=== PATIENT | female | born 1985 ===

== ENCOUNTER 2018-04-13 18:09 | Emergency (ER) | payer SELFPAY ==
[2018-04-13 18:16] VITALS: BP 126/80; PULSE 78; RESP 18; TEMP 99; O2SAT 99
--- NOTE | 2018-04-13 19:27 | ED PDOC ---
Lower Extremity Pain/Injury Time Seen by Provider: 04/13/18 18:16 Chief Complaint (Nursing): Lower Extremity Problem/Injury Chief Complaint (Provider): Lower extremity injury History Per: Patient History/Exam Limitations: no limitations Onset/Duration Of Symptoms: Other (3-4 weeks) Current Symptoms Are (Timing): Constant Additional Complaint(s): 32 year old female presented to ED with complaints of left foot pain. Patient reports that 1 year ago, she injured her left foot and never sought attention. For the past 3-4 weeks, pain has worsened and is greatest on the left heal. 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 Patient denies new trauma, numbness, tingling, and rash. PCP: none provided Past Medical History Reviewed: Historical Data, Nursing Documentation, Vital Signs Vital Signs: Last Vital Signs Temp 99.0 F 04/13/18 18:12 Pulse 78 04/13/18 18:12 Resp 18 04/13/18 18:12 BP 126/80 04/13/18 18:12 Pulse Ox 99 04/13/18 18:12 - Medical History PMH: No Chronic Diseases - Surgical History Surgical History: No Surg Hx - Family History Family History: States: Unknown Family Hx - Home Medications Home Medications: Ambulatory Orders Medication Instructions Recorded Meloxicam [Mobic] 7.5 mg PO DAILY PRN #14 tab 04/13/18 - Allergies Allergies/Adverse Reactions: Allergies Allergy/AdvReac Type Severity Reaction Status Date / Time No Known Allergies Allergy Verified 04/13/18 18:12 Review of Systems ROS Statement: Except As Marked, All Systems Reviewed And Found Negative Musculoskeletal: Positive for: Foot Pain (left foot) Skin: Negative for: Rash Neurological: Negative for: Numbness, Other (tingling, new trauma) Physical Exam - Reviewed Nursing Documentation Reviewed: Yes Vital Signs Reviewed: Yes - Physical Exam Appears: Positive for: Well, Non-toxic, No Acute Distress Head Exam: Positive for: ATRAUMATIC, NORMAL INSPECTION, NORMOCEPHALIC Skin: Positive for: Normal Color, Warm. Negative for: Rash Eye Exam: Positive for: Normal appearance Respiratory: Negative for: Respiratory Distress Pulses-Dorsalis Pedis (L): 2+ Extremity: Positive for: Normal ROM, Capillary Refill (less than 2 seconds). Negative for: Calf Tenderness (bilaterally), Deformity Neurologic/Psych: Positive for: Alert, Oriented. Negative for: Motor/Sensory Deficits Comments: LEFT FOOT: (+) mild tenderness on left heel, (+) minimal swelling on dorsal surface, (-) tenderness on dorsal surface, (-) break in skin integrity of entire foot - ECG O2 Sat by Pulse Oximetry: 99 (RA) Pulse Ox Interpretation: Normal - Radiology X-Ray: Interpreted by Me (Foot x-ray) X-Ray Interpretation: Other (heel spur; no fx) Medical Decision Making Medical Decision Making: Initial Impression: Initial Plan: X-Ray foot Scribe Attestation: Documented by Declan Tobin acting as a scribe for Phoenix Torres. Provider Scribe Attestation: All medical record entries made by the Scribe were at my direction and personally dictated by me. I have reviewed the chart and agree that the record accurately reflects my personal performance of the history, physical exam, medical decision making, and the department course for this patient. I have also personally directed, reviewed, and agree with the discharge instructions and disposition. Disposition - Clinical Impression Clinical Impression: Heel spur - Patient ED Disposition Is Patient to be Admitted: No - Disposition Referrals: [facility] [Outside] [facility] [Outside] Disposition: Routine/Home Disposition Time: 20:20 Condition: STABLE Additional Instructions: Follow up with podiatry clinic for further evaluation Return to ED immediately if symptoms worsen Prescriptions: Meloxicam [Mobic] 7.5 mg PO DAILY PRN #14 tab PRN Reason: Pain, Mild (1-3) Instructions: Heel Spurs (DC) Forms: [email or web address] (Pashto) Print Language: MALIAN
--- NOTE | 2018-04-14 07:29 | RAD ---
PROCEDURE: Left Foot Radiographs. HISTORY: pain COMPARISON: None. FINDINGS: BONES: No acute fracture or destructive bony lesion identified. A small plantar calcaneal spur is identified. JOINTS: No subluxation or dislocation appreciated. SOFT TISSUES: Dorsal and plantar foot soft tissues appear diffusely unremarkable with no retained radiodense foreign body or emphysema soft tissue changes appreciated. Technologist localizes the patient's pain to the mid plantar foot soft tissues by an arrow placed in the lateral view. No suspicious findings are identified. OTHER FINDINGS: None. IMPRESSION: No fracture or destructive bony lesion. No specific soft tissue finding. A small plantar calcaneal spur is identified.
== END 2018-04-13 20:25 | disposition home or self-care (01) ==
LOC: H.ER 18:09
DX: M77.32 Calcaneal spur, left foot (principal)